=== PATIENT | male | born 2000 | race Caucasian/White ===

== ENCOUNTER 2024-08-21 06:01 | Emergency (ER) | payer SELFPAY ==
[2024-08-21] MEDS: Ketorolac 30 MG/ML SDV IM ONE (06:51)
== END 2024-08-21 07:55 | disposition home or self-care (01) ==
LOC: MW.ED 06:01
DX: S83.402A Sprain of unspecified collateral ligament of left knee, initial encounter (principal); Z88.1 Allergy status to other antibiotic agents; X50.1XXA Overexertion from prolonged static or awkward postures, initial encounter
CPT/HCPCS: 73562; 96372; 99283; J1885

== ENCOUNTER 2024-09-24 12:32 | Day surgery (SDC) | payer SELFPAY ==
[~2024-09-24 12:32] MED LIST: Albuterol 0.083% 2.5 MG/3 ML Neb Soln NEB PRN; Bupivacaine 0.5%/EPINEPHrine 1:200,000 30 ML SDV ONE; HYDROmorphone 1 MG/ML Syringe IVPUSH PRN; Metoclopramide 10 MG/2 ML SDV IVPUSH PRN; Morphine 2 MG/ML SYRINGE IVPUSH PRN; Naloxone 0.4 MG/ML SDV IVPUSH PRN; Ondansetron 4 MG/2 ML SDV IVPUSH PRN; Phenylephrine HCl In 0.9% NaCl 1 MG/10 ML Syringe IVPUSH PRN; fentaNYL 50 MCG/ML SDV IVPUSH PRN
[2024-09-24] MEDS ORDERED: Propofol 200 MG/20 ML SDV ONE (12:37)
[2024-09-24] MEDS ORDERED: fentaNYL 100 MCG/2 ML SDV ONE (12:37)
[2024-09-24] MEDS ORDERED: dexmedeTOMIDine HCl 200 MCG/2 ML SDV ONE (12:40)
[2024-09-24] MEDS: Lactated Ringers 1,000 ML IV SCH (13:06)
[2024-09-24] MEDS ORDERED: Ondansetron 4 MG/2 ML SDV ONE (13:22)
[2024-09-24] MEDS ORDERED: Dexamethasone 4 MG/ML 5 ML MDV ONE (13:22)
[2024-09-24] MEDS ORDERED: ceFAZolin 2 GM Vial ONE (13:22)
[2024-09-24] MEDS ORDERED: HYDROmorphone 1 MG/ML Syringe ONE (13:26)
[2024-09-24] MEDS ORDERED: Ketamine HCL/NACL, ISO-OSM 50 MG/5 ML Syringe ONE (13:40)
[2024-09-24] MEDS ORDERED: Ketorolac 30 MG/ML SDV ONE (13:41)
== END 2024-09-24 15:15 | disposition home or self-care (01) ==
LOC: MW.SDS 12:32
PROVIDERS: ATTEND Orthopaedic Surgery
DX: S83.282A Other tear of lateral meniscus, current injury, left knee, initial encounter (principal); E66.9 Obesity, unspecified; Z87.891 Personal history of nicotine dependence; X58.XXXA Exposure to other specified factors, initial encounter
CPT/HCPCS: 29881; J0131; J0690; J1100; J1171; J1885; J2405; J2704; J3010; J7120; 01400; J3490